=== PATIENT | female | born 1970 | race Caucasian/White ===

== ENCOUNTER 2016-07-18 12:30 | Inpatient (IN) | payer OTHER ==
[2016-08-04] MEDS ORDERED: BUPIVACAINE/EPI 0.25% 30 ML SDV ONE (09:08)
[2016-08-04] MEDS ORDERED: THROMBIN (BOVINE) 20,000 UNIT VIAL TP ONE (09:08)
[2016-08-04] MEDS ORDERED: BACITRACIN 50,000 UNITS/10 ML SYR IRR ONE (09:09)
[2016-08-04] MEDS ORDERED: LIDOCAINE 1% 2 ML INJ ONE (11:07)
[2016-08-04] MEDS ORDERED: LIDOCAINE 1% 5 ML SDV ID PRN (11:37)
[2016-08-04] MEDS ORDERED: LR 1,000 ML IV ONE (11:37)
[2016-08-04] MEDS ORDERED: ceFAZolin 2 GM/DEXTROSE 100 ML IV ONE (12:00)
[2016-08-04] MEDS ORDERED: morphINE PF 5 MG/10 ML INJ IT ONE (12:00)
[2016-08-04] MEDS ORDERED: CHLORHEXIDINE GLUC HIBICLENS 118 ML BTL TP ONE (12:00)
[2016-08-04] MEDS ORDERED: MIDAZOLAM 2 MG/2 ML VIAL ONE (12:10)
[2016-08-04] MEDS ORDERED: REMIFENTANIL HCL 1 MG VIAL ONE ×2 (12:24→14:30)
[2016-08-04] MEDS ORDERED: PROPOFOL/EMULSION 500 MG/50 ML BOTTLE IV ONE ×2 (12:24→14:30)
[2016-08-04] MEDS ORDERED: fentaNYL 100 MCG/2 ML INJ ONE ×3 (12:24→16:56)
[2016-08-04] MEDS ORDERED: PROPOFOL 200 MG/20 ML VIAL ONE (12:24)
[2016-08-04] MEDS ORDERED: ONDANSETRON 4 MG/2 ML VIAL IVP PRN (12:32)
[2016-08-04] MEDS ORDERED: ONDANSETRON DISINTEGRATING 4 MG TAB PO PRN (12:32)
[2016-08-04] MEDS ORDERED: DIAZEPAM 10 MG/2 ML SYR IVP PRN (12:32)
[2016-08-04] MEDS ORDERED: diphenhydrAMINE 25 MG CAP PO PRN (12:32)
[2016-08-04] MEDS ORDERED: BISACODYL 10 MG SUPP PR PRN (12:32)
[2016-08-04] MEDS ORDERED: MAGNESIUM HYDROXIDE 30 ML UDCUP PO PRN (12:32)
[2016-08-04] MEDS ORDERED: LACTULOSE 20 GM/30 ML UDCUP PO PRN (12:32)
[2016-08-04] MEDS ORDERED: PHENYLEPHRINE 10 MG/ML SDV ONE (12:56)
[2016-08-04] MEDS ORDERED: morphINE PF 10 MG/10 ML INJ ONE (13:49)
[2016-08-04] MEDS ORDERED: ceFAZolin 1 GM VIAL ONE (15:39)
--- NOTE | 2016-08-04 16:30 | POSTOPPROG ---
Post Op Note Date of Operation: 08/04/16 Surgeon: Patricio Hughes Client Coordinator: RADAMES Powers PAC Anesthesia: GET(General Endotracheal) Pre-op Diagnosis: spondylolithesis, lumbar stenosis Post-op Diagnosis: spondylolithesis, lumbar stenosis Indication: spondylolithesis, lumbar stenosis Procedure: L4-S1 PSF, L4/5 left sided TLIF, L5/S1 Lugo decompression TLIF Inf/Abcess present in the surg proc area at time of surgery?: No EBL: 100cc Drains: Ru RASCON Addendum - Addendum .: S: Denies any pain O: NAD A&OX3 MAEx4. 5/5 and equal in BUE and BLE A/P 46y/o female s/p L4-S1 PSF, L4/5 left sided TLIF, L5/S1 Lugo decompression TLIF -Optimize pain management -Post op xrays pending -Advance diet as tolerates -PT/OT -DVT prophx: TEDs, SCDs,Lovenox okay POD1 -LAYA x1 -[place] notify NS with and change in neuro/motor exam
--- NOTE | 2016-08-04 17:32 | GOP ---
[f rep st] OPERATIVE REPORT DATE OF OPERATION: 08/04/2016 SURGEON: Patricio Hughes MD ANESTHESIA: General. SEASONAL TAX PREPARER: BALJIT Ly COMPLICATIONS: None. PREOPERATIVE DIAGNOSIS: 1. L5-S1 grade 1/grade 2 spondylolisthesis with bilateral pars defects. 2. L4-L5 spondylosis. 3. Lower extremity radiculopathy and back pain. 4. Treatment refractory to nonoperative intervention. PROCEDURE PERFORMED: 1. Posterior arthrodesis with approach to L4, L5, S1. 2. Posterolateral fusion with bilateral pedicle screw placement into L4, L5, S1 from the [employer] system. 3. Left-sided L4-L5 transforaminal lumbar interbody fusion with a 7 mm titanium PEEK elevate cage filled with morselized autograft and allograft. 4. Left-sided L5-S1 transforaminal lumbar interbody fusion with an 8 mm titanium-coated PEEK cage filled with morselized autograft and allograft. 5. Posterolateral fusion on the right between L4 and S1 with morselized autograft and allograft. 6. Reduction of spondylolisthesis L5-S1 from grade 2 to grade 1. 7. L5-S1 Lugo laminectomy with bilateral facetectomies. 8. Use of intraoperative 3D Stealth navigation. 9. Use of intraoperative fluoroscopy, less than 1 hour physician time. 10. Use of neuromonitoring. 11. Use of the the operating microscope. 12. Injection of preservative-free intrathecal narcotics. POSTOPERATIVE DIAGNOSIS: 1. L5-S1 grade 1/grade 2 spondylolisthesis with bilateral pars defects. 2. L4-L5 spondylosis. 3. Lower extremity radiculopathy and back pain. 4. Treatment refractory to nonoperative intervention. 5. Osteoporosis. FINDINGS: per imaging SPECIMENS: None. ESTIMATED BLOOD LOSS: 100 mL. INDICATIONS: The patient is a 46-year-old woman who presented with lower extremity radiculopathy and back pain. She had evidence of a grade 1/grade 2 spondylolisthesis of L5-S1 bilateral pars defects. After failing nonoperative intervention and after discussion of risks, benefits, and alternatives, we decided to proceed forth with the surgery as described above. DESCRIPTION OF PROCEDURE: Patient was brought to the operating theater and underwent general endotracheal anesthesia without complications. She had Venodynes, AMBROSE hose and Corona catheter placed. She had appropriate lines placed by Anesthesia. She was then flipped prone onto the Ru table. All bony processes were inspected and padded. The lower lumbar region was prepped and draped in the usual sterile surgical fashion. A time-out was completed per protocol, and the patient received antibiotics within 1 hour of incision. Using lateral fluoroscopy and a spinal needle, we picked our entry point to the L4 through S1 levels. This was marked in the midline. The incision was infiltrated with Marcaine with epinephrine. The incision was taken down with the scalpel blade, and then using the monopolar, taken down the midline through the lumbodorsal fascia. A subperiosteal dissection was carried out to the transverse processes of L4, L5, and S1. Care was taken to preserve the L3-4 facet joint. Deep retractors were placed to maintain our exposure, and we confirmed our level using lateral fluoroscopy. We attached the 3D Stealth navigation clamps to the spinous process of S1 and completed a 3D Stealth navigation spin. Using 3D Stealth navigation, we placed the pilot plant supervisor holes for the bilateral pedicle screws at L4, L5, and S1. All holes were manually palpated with no evidence of any cortical breaches. We then tapped and placed 6.5 x 50 mm screws bilaterally at L4 and on the left at L5, 6.5 x 55 mm screw on the right at L5, and 6.5 x 45 mm screws bilaterally in S1 for the [employer] Solera system. Another 3D Stealth navigation spin demonstrated the right-sided L5-S1 screws were somewhat deep, which we then pulled back a little bit. Her bone quality was noted to be much softer than expected for her age and likely consistent with osteoporosis. At this point, the microscope was brought into the field to assist with the microscopic dissection and to maintain illumination and magnification. Using a combination of the bur tip on the drill bit, Kerrison punches, and the Leksell Rongeur, we completed a Lugo laminectomy and decompression at L5-S1 with bilateral facetectomies. We also completed a left-sided L4-L5 hemilaminotomy with medial facetectomy and foraminotomy. We moved up to L4-5 where we distracted the interspace and completed a resection of the pars. We completed a left-sided L4-5 diskectomy. We prepared the cartilaginous endplates and measured the interbody space. We placed a 7 mm titanium PEEK elevate cage filled with morselized allograft anteriorly and toward the midline. We packed additional morcellized autograft into the disk space for the interbody fusion. We let down the distraction and moved down to L5-S1 where we distracted the L5- S1 disc interspace and completed a left-sided L5-S1 diskectomy. We prepared the cartilaginous endplates and measured interbody space. We placed an 8 mm a titanium-coated PEEK cage filled with the morselized autograft and allograft anteriorly and toward the midline. We packed additional morcellized autograft into the disk space for the interbody fusion. AP and lateral x-rays demonstrated good placement of the hardware. At this point, we decorticated the bone on the right side between L4 and S1 for the posterolateral fusion. We placed 2 rods into the heads of the screws between L4 and S1 and used the reduction towers on the bilateral L5 pedicle screws to reduce the L5 spondylolisthesis from a grade 2 to grade 1 spondylolisthesis. We secured the cap screws down with cap screws, which were tightened per the day care attendant's setting. AP and lateral x-rays demonstrated good placement of the hardware. We injected preservative-free intrathecal narcotics and placed morselized autograft and allograft on the right side between L4 and S1 for the posterolateral fusion. We irrigated the wound copiously with bacitracin irrigation and left a drain in subfascial space. The wound was then closed in multiple layers using Vicryl sutures in the deep layers and Dermabond for the skin. She was flipped supine onto the transfer cart. She was awakened, extubated, and taken to the recovery room in stable condition. There were no complications and no noted changes on neuromonitoring throughout the procedure. /[id number]/MODL MTDD
[2016-08-04] MEDS: NS W/ 20 KCl/L 1,000 ML IV SCH (18:01)
[2016-08-04] MEDS: SENNOSIDES/DOCUSATE SODIUM TAB PO SCH (19:51)
[2016-08-04] MEDS: FAMOTIDINE 20 MG TAB PO SCH (19:52)
[2016-08-04] MEDS: oxyCODONE IR 5 MG TAB PO PRN (19:52)
[2016-08-04] MEDS: DIAZEPAM 5 MG TAB PO PRN (19:53)
[2016-08-04] MEDS: POLYETHYLENE GLYCOL 3350 17 GM PKT PO PRN (19:58)
[2016-08-04] MEDS ORDERED: FAMOTIDINE 20 MG/NACL 50 ML IV SCH (21:00)
[2016-08-05] MEDS: oxyCODONE IR 5 MG TAB PO PRN ×6 (00:33→23:50)
[2016-08-05] MEDS: DIAZEPAM 5 MG TAB PO PRN ×2 (02:58→19:48)
[2016-08-05] MEDS: ACETAMINOPHEN 325 MG TAB PO PRN ×4 (02:58→21:20)
[2016-08-05] MEDS: LEVOTHYROXINE 50 MCG TAB PO SCH (04:40)
--- NOTE | 2016-08-05 06:54 | NEUSURGPN ---
Date of Surgery: 08/04/16 Post Op Day: 1 Assessment/Plan: Assessment: 46 y/o female s/p L4-S1 PSF, L4/5 left sided TLIF, L5/S1 Lugo decompression TLIF POD #1 Plan: -s/p L spine fusion: Pt with expected lower back pain, legs feel fine - at bedside -CDI -pending xrays today -PT/OT to work with pt -Optimize pain management-doing well on current plan -Advance diet as tolerates -DVT prophx: TEDs, SCDs,Lovenox okay POD1 -LAYA x 1-continue with plans for dc tomorrow -Please notify NS with and change in neuro/motor exam Subjective: Awake and alert. NAD. Eating/drinking and voiding. No f/c/n/v/d. No franklin/neck/ chest/abd or gu complaints. Objective: AAO x 3, PERRLA/EOMI no droop CN 2-12 grossly intact +lt touch 5/5 BUE/BLE = CDI LAYA in place and working Neuro Check Frequency: per routine Urinary Catheter in Place: No Catheter Insertion Date: 08/04/16 - Physician Discussed Patient with : Saul Neurosurgery Physical Exam - Vitals, I&O, Labs I and O 08/04/16 08/05/16 08/06/16 05:59 05:59 05:59 Intake Total 3500 Output Total 3265 Balance 235 Weight 86.183 kg Intake: Oral (ml) 1500 IV Intake (ml) 2000 Output: Urine (ml) 2950 Catheter 2950 Estimated Blood Loss (ml) 100 Wound Drainage (ml) 215 Back Ru [place] 215 Vital Signs Temp Pulse Resp BP Pulse Ox 36.6 C 53 L 16 93/58 L 96 08/05/16 04:00 08/05/16 04:00 08/05/16 04:00 08/05/16 04:00 08/05/16 04:00 ICD10 Worksheet Patient Problems: Problems Problem Status Onset Lumbar stenosis Acute - ICD10 Problem Qualifiers (1) Lumbar stenosis
[2016-08-05] MEDS ORDERED: NON-FORMULARY NEW DRUG (Citalopram Hydrobromide [Celexa] 40 MG) PO SCH (09:00)
[2016-08-05] MEDS: buPROPion SR 100 MG TAB PO SCH (09:01)
[2016-08-05] MEDS: FAMOTIDINE 20 MG TAB PO SCH ×2 (09:01→19:45)
[2016-08-05] MEDS: CITALOPRAM 20 MG TAB PO SCH (09:02)
[2016-08-05] MEDS: SENNOSIDES/DOCUSATE SODIUM TAB PO SCH ×2 (09:02→19:45)
[2016-08-05] MEDS: METHOCARBAMOL 750 MG TAB PO PRN ×2 (09:04→15:33)
[2016-08-05] MEDS: ENOXAPARIN 40 MG/0.4 ML SYR SC SCH (09:10)
[2016-08-05] MEDS: HYDROCHLOROTHIAZIDE 25 MG TAB PO SCH (10:12)
[2016-08-05] MEDS: ATENOLOL 50 MG TAB PO SCH (10:12)
[2016-08-05 18:32] LABS: GLUCOSE 103 mg/dL (70-100)
[2016-08-05] MEDS: POLYETHYLENE GLYCOL 3350 17 GM PKT PO PRN (22:29)
[2016-08-06] MEDS: oxyCODONE IR 5 MG TAB PO PRN ×5 (03:25→20:22)
[2016-08-06] MEDS: DIAZEPAM 5 MG TAB PO PRN (03:25)
[2016-08-06] MEDS: LEVOTHYROXINE 50 MCG TAB PO SCH (06:21)
[2016-08-06] MEDS: METHOCARBAMOL 750 MG TAB PO PRN ×3 (07:54→21:47)
[2016-08-06] MEDS: ACETAMINOPHEN 325 MG TAB PO PRN ×3 (07:54→21:40)
[2016-08-06] MEDS: CITALOPRAM 20 MG TAB PO SCH (07:55)
[2016-08-06] MEDS: FAMOTIDINE 20 MG TAB PO SCH ×2 (07:55→20:24)
[2016-08-06] MEDS: ENOXAPARIN 40 MG/0.4 ML SYR SC SCH (07:55)
[2016-08-06] MEDS: SENNOSIDES/DOCUSATE SODIUM TAB PO SCH ×2 (07:55→20:23)
[2016-08-06] MEDS: buPROPion SR 100 MG TAB PO SCH (07:55)
[2016-08-06] MEDS: ATENOLOL 50 MG TAB PO SCH (08:17)
[2016-08-06] MEDS: HYDROCHLOROTHIAZIDE 25 MG TAB PO SCH (08:18)
[2016-08-06] MEDS: NS W/ 20 KCl/L 1,000 ML IV SCH ×2 (09:32→22:31)
[2016-08-06] MEDS: morphINE SR 15 MG TAB PO SCH ×2 (10:32→20:21)
--- NOTE | 2016-08-06 14:28 | NEUSURGPN ---
Assessment/Plan: Assessment: 46 y/o female s/p L4-S1 PSF, L4/5 left sided TLIF, L5/S1 Lugo decompression TLIF POD #2 Plan: -s/p L spine fusion: Pt with expected lower back pain, legs feel fine, will add MS Contin to pain regimen to help with better control -CDI -pending xrays today- was not able to stand for x-rays yesterday -PT/OT to work with pt -Optimize pain management-Adding MS Contin 15mg BID, can use benadryl for itching -DVT prophx: TEDs, SCDs,Lovenox -DC LAYA drain -Encourage IS -Please notify NS with and change in neuro/motor exam -Dispo- tomorrow if pain under control and clears therapies Subjective: Patient in quite a lot of pain this morning, did not have a good night. States pain in legs is better, mostly sharp back pain. had mild fever last night. Denies fever, chills. Has not been walking much, but did get up to bathroom. Objective: AAO x 3, PERRLA/EOMI +lt touch 5/5 BUE/BLE = CDI LAYA in place and working- to be removed today Catheter Insertion Date: 08/04/16 - Physician Discussed Patient with : Saul Neurosurgery Physical Exam - Vitals, I&O, Labs I and O 08/05/16 08/06/16 08/07/16 05:59 05:59 05:59 Intake Total 3500 500 Output Total 3265 3600 Balance 235 -3100 Weight 86.183 kg Intake: Oral (ml) 1500 500 IV Intake (ml) 2000 Output: Urine (ml) 2950 3400 Bedside Commode 3400 Catheter 2950 Estimated Blood Loss (ml) 100 Wound Drainage (ml) 215 200 Back Ru Sauced[place] 215 200 Other: Intake Quantity No Sufficient Number of Voids Bedside Commode 1 Catheter 2 Toilet 1 Vital Signs Temp Pulse Resp BP Pulse Ox 36.9 C 76 16 109/69 96 08/06/16 11:51 08/06/16 11:51 08/06/16 11:51 08/06/16 12:39 08/06/16 11:51 Laboratory Results 08/05/16 18:10 ICD10 Worksheet Patient Problems: Problems Problem Status Onset Lumbar stenosis Acute
[2016-08-07] MEDS: oxyCODONE IR 5 MG TAB PO PRN ×5 (00:44→19:55)
[2016-08-07] MEDS: ACETAMINOPHEN 325 MG TAB PO PRN ×3 (04:25→18:11)
[2016-08-07] MEDS: METHOCARBAMOL 750 MG TAB PO PRN ×3 (04:26→18:11)
[2016-08-07] MEDS: LEVOTHYROXINE 50 MCG TAB PO SCH (06:24)
--- NOTE | 2016-08-07 07:47 | NEUSURGPN ---
Assessment/Plan: Assessment: 46 y/o female s/p L4-S1 PSF, L4/5 left sided TLIF, L5/S1 Lugo decompression TLIF POD #3 Plan: -s/p L spine fusion: Pt with expected lower back pain, legs feel fine, continue current med regimen -CDI -post op xrays show stable hardware -PT/OT to work with pt -DVT prophx: TEDs, SCDs,Lovenox -Encourage IS -Please notify NS with and change in neuro/motor exam -Dispo- later today vs tomorrow if pain under control and clears therapies -Seen w/ Dr Hughes this AM Subjective: Pt resting in bed, had increased pain last pm around 10:30pm but this AM feeling ok. Objective: AAOx3 NAD VSS MAEx4 Motor 5/5 BLE Incision dressed Urinary Catheter in Place: No Catheter Insertion Date: 08/04/16 - Physician Discussed Patient with Dr.: Hughes Patient Seen by Dr.: Hughes Neurosurgery Physical Exam - Vitals, I&O, Labs I and O 08/06/16 08/07/16 08/08/16 05:59 05:59 05:59 Intake Total 500 4084 860 Output Total 3600 1 Balance -3100 4083 860 Intake: Oral (ml) 500 3600 IV Intake (ml) 484 IV Infused (ml) 860 NS W/ 20 KCl/L 1,000 ml @ 860 75 mls/hr IV CONT CONNOR Rx #:[id number] Output: Urine (ml) 3400 1 Bedside Commode 3400 Toilet 1 Wound Drainage (ml) 200 Back Ru Sauced[place] 200 Other: Intake Quantity No Yes Sufficient Number of Voids Bedside Commode 1 Catheter 2 Toilet 1 Vital Signs Temp Pulse Resp BP Pulse Ox 37.6 C 82 16 111/58 L 89 L 08/07/16 07:36 08/07/16 07:36 08/07/16 07:36 08/07/16 07:36 08/07/16 07:36 Laboratory Results 08/05/16 18:10 ICD10 Worksheet Patient Problems: Problems Problem Status Onset Lumbar stenosis Acute
[2016-08-07] MEDS: morphINE SR 15 MG TAB PO SCH ×2 (09:03→19:57)
[2016-08-07] MEDS: buPROPion SR 100 MG TAB PO SCH (09:03)
[2016-08-07] MEDS: SENNOSIDES/DOCUSATE SODIUM TAB PO SCH ×2 (09:03→19:55)
[2016-08-07] MEDS: CITALOPRAM 20 MG TAB PO SCH (09:04)
[2016-08-07] MEDS: ENOXAPARIN 40 MG/0.4 ML SYR SC SCH (09:04)
[2016-08-07] MEDS: FAMOTIDINE 20 MG TAB PO SCH ×2 (09:04→19:56)
[2016-08-07] MEDS: HYDROCHLOROTHIAZIDE 25 MG TAB PO SCH (09:05)
[2016-08-07] MEDS: ATENOLOL 50 MG TAB PO SCH (09:06)
[2016-08-07] MEDS: POLYETHYLENE GLYCOL 3350 17 GM PKT PO PRN (19:57)
[2016-08-08] MEDS: ACETAMINOPHEN 325 MG TAB PO PRN ×2 (02:09→11:40)
[2016-08-08] MEDS: METHOCARBAMOL 750 MG TAB PO PRN ×2 (02:09→11:41)
[2016-08-08] MEDS: oxyCODONE IR 5 MG TAB PO PRN ×4 (04:12→13:35)
[2016-08-08] MEDS: LEVOTHYROXINE 50 MCG TAB PO SCH (06:05)
--- NOTE | 2016-08-08 07:19 | NEUSURGPN ---
Assessment/Plan: Assessment: 46 y/o female s/p L4-S1 PSF, L4/5 left sided TLIF, L5/S1 Lugo decompression TLIF POD #4 Plan: -s/p L spine fusion: Pt with expected lower back pain, legs feel fine, continue current med regimen -CDI -post op xrays show stable hardware -PT/OT to work with pt -DVT prophx: TEDs, SCDs,Lovenox -Encourage IS -Please notify NS with and change in neuro/motor exam -Dispo- later today after PT -D/w Dr Hughes this AM Subjective: Pt resting in bed, pain well managed. Wants to go home later today. Objective: AAOx3 NAD VSS MAEx4 Motor 5/5 BLE Incision cdi dressed +LT Urinary Catheter in Place: No Catheter Insertion Date: 08/04/16 - Physician Discussed Patient with Dr.: Hughes Neurosurgery Physical Exam - Vitals, I&O, Labs I and O 08/07/16 08/08/16 08/09/16 05:59 05:59 05:59 Intake Total 4084 4160 Output Total 1 Balance 4083 4160 Intake: Oral (ml) 3600 3000 IV Intake (ml) 484 IV Infused (ml) 1160 NS W/ 20 KCl/L 1,000 ml @ 1160 75 mls/hr IV CONT CONNOR Rx #:[id number] Output: Urine (ml) 1 Toilet 1 Other: Intake Quantity Yes Yes Sufficient Number of Voids Toilet 1 1 Vital Signs Temp Pulse Resp BP Pulse Ox 36.7 C 77 18 100/59 L 94 08/07/16 23:04 08/07/16 23:04 08/07/16 23:04 08/07/16 23:04 08/07/16 23:04 Laboratory Results 08/05/16 18:10 ICD10 Worksheet Patient Problems: Problems Problem Status Onset Lumbar stenosis Acute
[2016-08-08] MEDS: SENNOSIDES/DOCUSATE SODIUM TAB PO SCH (08:13)
[2016-08-08] MEDS: CITALOPRAM 20 MG TAB PO SCH (08:13)
[2016-08-08] MEDS: FAMOTIDINE 20 MG TAB PO SCH (08:14)
[2016-08-08] MEDS: buPROPion SR 100 MG TAB PO SCH (08:14)
[2016-08-08] MEDS: morphINE SR 15 MG TAB PO SCH (08:14)
[2016-08-08] MEDS: ENOXAPARIN 40 MG/0.4 ML SYR SC SCH (08:16)
[2016-08-08] MEDS: ATENOLOL 50 MG TAB PO SCH (08:22)
[2016-08-08] MEDS: HYDROCHLOROTHIAZIDE 25 MG TAB PO SCH (08:22)
[2016-08-08 15:35] VITALS: BP 116/78; PULSE 77; RESP 14; TEMP 98.1; O2SAT 93
== END 2016-08-08 16:36 | disposition home or self-care (01) | DRG 460 ==
LOC: F3N 08-04 10:30
PROVIDERS: ADMIT Neurological Surgery; ATTEND Neurological Surgery
PROC: 01NB0ZZ Release Lumbar Nerve, Open Approach (ICD-10-PCS; principal; 2016-08-04 13:00)
PROC: 0SG30AJ Fusion of Lumbosacral Joint with Interbody Fusion Device, Posterior Approach, Anterior Column, Open Approach (ICD-10-PCS; principal; 2016-08-04 13:00)
PROC: 0SG00AJ Fusion of Lumbar Vertebral Joint with Interbody Fusion Device, Posterior Approach, Anterior Column, Open Approach (ICD-10-PCS; principal; 2016-08-04 13:00)
DX: M43.16 Spondylolisthesis, lumbar region (principal); M47.16 Other spondylosis with myelopathy, lumbar region
CPT/HCPCS: 82947-QW; 97116-GP; 97161-GP; 97165-GO; 97530-GP; 97535-GO; C1713; J0690; J1650; J2250; J2274; J2370; J2704; J3010